=== PATIENT | female | born 1990 | race Two or more races ===

== ENCOUNTER 2016-12-10 09:38 | Emergency (ER) | payer SELFPAY ==
[~2016-12-10] VITALS: Ht 154.9 cm; Wt 63.5 kg
[~2016-12-10 09:38] MED LIST: BENADRYL50 MG PO; IBUPROFEN600 MG ORAL; NKM; NYSTATIN OINT15 GM EXT; TAMIFLU75 MG ORAL
[2016-12-10 09:49] VITALS: BP 121/73
[2016-12-10] MEDS ORDERED: TYLENOL EXTRA500 MG ORAL (10:29)
[2016-12-10 10:33] VITALS: BP 121/73
--- NOTE | 2016-12-10 10:39 | Diagnostic Imaging Report ---
Indication: Left shoulder pain Technique: XRAY SHOULDER MIN 3V LEFT Comparison: None Findings: There is no acute fracture or dislocation. Bone mineralization is normal. Soft tissues are grossly unremarkable. Impression: No acute osseous abnormality.
--- NOTE | 2016-12-11 08:45 | Diagnostic Imaging Report ---
Indication: Left humerus pain Technique: XRAY HUMERUS 2V LEFT Comparison: None Findings: There is no acute fracture or dislocation. Soft tissues are grossly unremarkable. Impression: No acute osseous abnormality.
--- NOTE | 2016-12-13 15:30 | Emergency Room Report ---
History of Present Illness General Chief Complaint: Upper Extremity Injury Source: Patient Present Illness HPI 26-year-old female presents ED complaining of left arm pain. States last night she mechanical trip and fall landing on her left arm. Denies any other injuries. Notes pain to the left arm, throbbing, 6/10, radiating down the arm. No other aggravating or relieving factors. Denies any other associated symptoms Allergies: Coded Allergies: No Known Allergies (Unverified , 04/28/13) Patient History Past Medical History: none Past Surgical History: none Pertinent Family History: none Social History: Denies: alcohol use, drug use, smoking Last Menstrual Period: 11/12/16 Now: No Immunizations: UTD Reviewed Nursing Documentation: PMH: Agreed, PSxH: Agreed Nursing Documentation-PMH Past Medical History: No Stated History Review of Systems All Other Systems: negative except mentioned in HPI Physical Exam Vital Signs Date Time Temp Pulse Resp B/P Pulse Ox O2 Delivery O2 Flow Rate FiO2 12/10/16 09:45 98.2 78 16 121/73 99 Room Air Sp02 EP Interpretation: reviewed, normal General Appearance: no apparent distress, alert, GCS 15, non-toxic Head: normocephalic Eyes: bilateral eye PERRL, bilateral eye normal inspection ENT: normal ENT inspection Neck: normal inspection Respiratory: normal inspection Cardiovascular #1: normal inspection Gastrointestinal: normal inspection Rectal: deferred Genitourinary: no CVA tenderness Musculoskeletal: tender - L humerus Neurologic: alert, oriented x3, responsive, motor strength/tone normal, sensory intact, speech normal Psychiatric: judgement/insight normal, memory normal, mood/affect normal, no suicidal/homicidal ideation Skin: normal inspection Lymphatic: normal inspection Medical Decision Making Diagnostic Impression: Primary Impression: Arm contusion Qualified Codes: S40.022A - Contusion of left upper arm, initial encounter ER Course Hospital Course 26-year-old F presents to ED complaining of L arm pain s/p trip and fall Differential diagnoses include: Fracture, dislocation, sprain, contusion Clinical course Patient placed on stretcher. After initial history and physical, I ordered Xrays of L shoulder/humerus Xrays prelim read shows no acute fracture/dislocation. Diagnosis - arm contusion Stable and discharged to home. apply ice, keep elevated. weight bear as tolerated. Followup with PMD. Return to ED if symptoms recur or worsen Other X-Ray Diagnostic Results Other X-Ray Diagnostic Results : X-Ray Ordered: Left humerus, left shoulder EP Interpretation: Yes Findings: no fractures, no dislocation, no soft tissue swelling Number of Views: 3 Other Impression Left shoulder-No fracture, no dislocation, no soft tissue swelling Left arm-No fracture, no dislocation, no soft tissue swelling Last Vital Signs Date Time Temp Pulse Resp B/P Pulse Ox O2 Delivery O2 Flow Rate FiO2 12/10/16 10:33 98.2 73 16 121/73 99 Room Air Status: improved Disposition: HOME, SELF-CARE Condition: Stable Scripts Acetaminophen* (TYLENOL EXTRA STRENGTH*) 500 Mg Tablet 500 MG ORAL Q8H Y for Prn Headache/Temp > 101, #30 TAB 0 Refills Prov: LIONEL BARBOSA M.D. 12/10/16 Referrals: NOT CHOSEN TESS/,REFERRING (PCP) Patient Instructions: Contusion, [id number] LIONEL BARBOSA M.D. Dec 13, 2016 15:30
== END 2016-12-10 10:40 | disposition home or self-care (01) ==
LOC: EMR 10:30
DX: S40.022A Contusion of left upper arm, initial encounter (principal); W01.0XXA Fall on same level from slipping, tripping and stumbling without subsequent striking against object, initial encounter; Y93.9 Activity, unspecified; Y92.9 Unspecified place or not applicable
CPT/HCPCS: 99284

== ENCOUNTER 2017-04-12 16:01 | Emergency (ER) | payer SELFPAY ==
[~2017-04-12] VITALS: Ht 157.5 cm; Wt 61.2 kg
[~2017-04-12 16:01] MED LIST changes: +TYLENOL EXTRA500 MG ORAL
[2017-04-12 16:07] VITALS: BP 112/74
[2017-04-12] MEDS ORDERED: Bacitracin Oint UD TOPIC ONE (16:30)
[2017-04-12] MEDS ORDERED: Tetanus/Diptheria/Pertussis Vaccine 0.5ml Syr IM ONE (16:30)
[2017-04-12] MEDS ORDERED: Bactrim DS (160mg/800mg) tab ORAL ONE (16:30)
[2017-04-12] MEDS ORDERED: Tylenol #3 tab (300mg/30mg) ORAL ONE (16:30)
[2017-04-12] MEDS ORDERED: Cephalexin 500mg cap ORAL ONE (16:30)
[2017-04-12] MEDS ORDERED: BACTRIM DS TAB1 EAC1 ORAL (16:40)
[2017-04-12] MEDS ORDERED: CEPHALEXIN500 MG ORAL (16:40)
[2017-04-12] MEDS ORDERED: ACETAMINOPHEN-1 EAC1 ORAL (16:40)
[2017-04-12 16:58] VITALS: BP 104/70
--- NOTE | 2017-04-12 18:19 | Emergency Room Report ---
History of Present Illness General Chief Complaint: Skin Rash/Abscess Source: Patient Present Illness HPI The patient is a 27-year-old female presenting with possible insect bite. She states that she noticed a red gualberto on the left thigh yesterday which has now progressed. Pain has increased and is now a 9/10 dull ache. Worse with touch. She denies any fever or chills. She denies other symptoms including N, V, abd pain, LUNA, dizziness, blurred vision Allergies: Coded Allergies: No Known Allergies (Unverified , 04/28/13) Patient History Past Medical History: see triage record Pertinent Family History: none Last Menstrual Period: 03/17/17 Reviewed Nursing Documentation: PMH: Agreed, PSxH: Agreed Nursing Documentation-PMH Past Medical History: No Stated History Review of Systems All Other Systems: negative except mentioned in HPI Physical Exam Vital Signs Date Time Temp Pulse Resp B/P Pulse Ox O2 Delivery O2 Flow Rate FiO2 04/12/17 16:07 98.1 90 16 112/74 98 Room Air Sp02 EP Interpretation: reviewed, normal General Appearance: no apparent distress, alert, GCS 15, non-toxic Head: normocephalic, atraumatic Eyes: bilateral eye PERRL, bilateral eye normal inspection ENT: hearing grossly normal, normal pharynx, no angioedema, normal voice Musculoskeletal: back normal, gait/station normal, normal range of motion Neurologic: alert, oriented x3, responsive, motor strength/tone normal, sensory intact, speech normal Psychiatric: judgement/insight normal, memory normal, mood/affect normal, no suicidal/homicidal ideation Reflexes: 3+ bicep (R), 3+ bicep (L), 3+ tricep (R), 3+ tricep (L), 3+ knee (R) , 3+ knee (L) Skin: rash - L anterior thigh: diffuse erythema surrounding central shallow ulcer. TTP. Hot to the touch Lymphatic: no adenopathy Medical Decision Making PA Attestation Dr. Ray is my supervising physician. Patient management was discussed with my supervising physician Diagnostic Impression: Primary Impression: Cellulitis Qualified Codes: L03.116 - Cellulitis of left lower limb ER Course The patient is a 27 yo F presenting with L leg rash Ddx considered include but not limited to insect bite, contact dermatitis, eczema, cellulitis, among others PE: afebrile. NAD L anterior thigh: diffuse erythema surrounding central shallow ulcer. TTP. Hot to the touch. The area is cleaned with normal saline and Betadine. She is discharged home with a prescription for antibiotics and pain medication. She will follow up with primary doctor. She was given ER precautions Last Vital Signs Date Time Temp Pulse Resp B/P Pulse Ox O2 Delivery O2 Flow Rate FiO2 04/12/17 16:07 98.1 90 16 112/74 98 Room Air Status: improved Disposition: HOME, SELF-CARE Condition: Improved Scripts Trimethoprim/Sulfamethoxazole 160/800* (BACTRIM DS TABLET*) 1 Each Tablet 1 TAB ORAL DAILY, #14 TAB Prov: DEANNANCARMINE P.A. 04/12/17 Cephalexin* (KEFLEX*) 500 Mg Capsule 500 MG ORAL EVERY 12 HOURS, #14 CAP 0 Refills Prov: TERZIANROYERY P.A. 04/12/17 Acetaminophen With Codeine (T#3) (TYLENOL #3 TAB*) Y Tab 1 TAB ORAL Q6HR Y for For Pain, #10 TAB Prov: TERAVERYANROYERY P.A. 04/12/17 Referrals: NOT CHOSEN IPA/MD,REFERRING (PCP) Patient Instructions: Cellulitis, Insect Bite Additional Instructions: I discussed my findings with the patient. All questions and concerns have been answered. Treatment and medication compliance have been addressed. I advised the patient that they need to follow up with PMD in 3-5 days. Return to ED if symptoms worsen, new symptoms arise, or if needed for any reason. Patient verbalized understanding of discharge instructions. CARMINE GIBBS Apr 12, 2017 18:19
== END 2017-04-12 16:58 | disposition home or self-care (01) ==
LOC: EMR 16:38
DX: L03.116 Cellulitis of left lower limb (principal); Z23 Encounter for immunization
CPT/HCPCS: 90471; 90715; 96372; 99284

== ENCOUNTER 2019-03-22 17:08 | Emergency (ER) | payer BC ==
[~2019-03-22] VITALS: Ht 154.9 cm; Wt 65.8 kg
[~2019-03-22 17:08] MED LIST changes: +ACETAMINOPHEN-1 EAC1 ORAL; +BACTRIM DS TAB1 EAC1 ORAL; +CEPHALEXIN500 MG ORAL
[2019-03-22 17:23] VITALS: BP 112/74
--- NOTE | 2019-03-22 17:23 | NUR ---
ED Nurse Note: Pt ahs been experiencing back, chest, neck, and bilateral leg pain x 2 months. Pain 9/10 abby. AOx4, VSS. Will cont to monitor.
[2019-03-22 18:16] LABS: APPEARANCE,URINE CLEAR; BILIRUBIN, URINE NEGATIVE (NEGATIVE); COLOR,URINE PALE YELLOW; GLUCOSE, URINE (UA) NEGATIVE (NEGATIVE); KETONES,URINE 3+ (NEGATIVE); LEUKOCYTE ESTERASE ,URINE NEGATIVE (NEGATIVE); NITRITE,URINE NEGATIVE (NEGATIVE); PH,URINE 6 (4.5-8.0); PROTEIN,URINE NEGATIVE (NEGATIVE); UROBILINOGEN,URINE NORMAL MG/DL (0.0-1.0)
--- NOTE | 2019-03-22 18:23 | NUR ---
ED Nurse Note: Pt down to CT for imaging.
[2019-03-22 18:34] LABS: BASOPHILS % (AUTO) 0.6 % (0.0-2.0); HEMATOCRIT 41.7 % (37.0-47.0); HEMOGLOBIN 13.4 G/DL (12.0-16.0); LYMPHOCYTES % (AUTO) 11.2 % (20.0-45.0); MEAN CORPUSCULAR VOLUME 83 FL (80-99); MONOCYTES % (AUTO) 5.9 % (1.0-10.0); NEUTROPHILS % (AUTO) 82.3 % (45.0-75.0); PLATELET COUNT 182 K/UL (150-450); RED BLOOD COUNT 5.01 M/UL (4.20-5.40); RED CELL DISTRIBUTION WIDTH 13.1 % (11.6-14.8); WHITE BLOOD COUNT 5.5 K/UL (4.8-10.8)
--- NOTE | 2019-03-22 18:43 | Diagnostic Imaging Report ---
Indication: Headache Technique: Contiguous 5 mm thick transaxial imaging of the head obtained in a Siemens Sensation [address] scanner. Soft tissue and bone windows generated. Automatic Exposure Control was utilized. Total Dose length Product (DLP): 1361.[address] Dose Index Volume (CTDIvol): 70.38 mGy Comparison: none Findings: The size and configuration of the cortical sulci, basal cisterns, and ventricles are within normal limits for age. There is no mass effect, midline shift, or edema identified. There is no evidence of acute hemorrhage or abnormal intra-axial or extra-axial fluid collections. The bones and soft tissues are unremarkable. Impression: No mass effect, edema or acute bleed. [facility] has communicated the preliminary results to the Emergency Department. Their findings are largely concordant with this report. The CT scanner at [facility] is accredited by the [employer] and the scans are performed using dose optimization techniques as appropriate to a performed exam including Automatic Exposure control.
[2019-03-22 18:48] LABS: ANION GAP 9 mmol/L (5-15); BLOOD UREA NITROGEN 7 mg/dL (7-18); CALCIUM 9.2 MG/DL (8.5-10.1); CARBON DIOXIDE 26 MMOL/L (21-32); CHLORIDE 103 MMOL/L (98-107); CREATININE 0.7 MG/DL (0.55-1.30); POTASSIUM 4.3 MMOL/L (3.5-5.1); SODIUM 138 MMOL/L (136-145)
[2019-03-22 18:53] LABS: ALANINE AMINOTRANSFERASE 15 U/L (12-78); ALKALINE PHOSPHATASE 65 U/L (46-116); ASPARTATE AMINO TRANSFERASE 20 U/L (15-37); BILIRUBIN,TOTAL 0.5 MG/DL (0.2-1.0)
[2019-03-22] MEDS ORDERED: FIORICET1 EA ORAL (19:12)
--- NOTE | 2019-03-22 19:12 | Emergency Room Report ---
History of Present Illness General Chief Complaint: Pain Source: Patient Present Illness HPI 29-year-old female presents to the emergency department with multiple complaints her primary complaint is a daily 9 out of 10 severity frontal sharp headache with facial pain, photophobia and dizziness. Patient reports she awakes every morning with the symptoms for the past 2 months. Patient states that her symptoms last approximately 2 hours. Patient denies history of migraines she denies familial history of migraines. She also reports nausea however she states today she had vomiting and her headache was 10 out of 10 in severity. Patient denies paresthesias she denies fevers, chills, neck pain or stiffness. She denies trauma or fall or history of TBI. She also is reporting going from 127 pounds 270 pounds within 6 months without change of her diet or exercise/daily activities. Patient also reports intermittent abdominal pains and increased fatigue. The patient describes her dizziness primarily as double vision she denies vertigo or imbalance. Denies loss of vision during episodes of headaches. She also is complaining of having increased tenderness and dull aches in the left breast. Patient denies personal or familial history of uterine, cervical or breast cancer. She denies palpable masses, nipple discharge, indentation of the breast or erythema/warmth. Patient states that she is G2, P2 and she states she is not currently breast-feeding. Also reports that after her second child she has had irregular periods where she typically goes over 38 days prior to having a cycle. She denies hot flashes, fevers, chills she denies any aggravating or relieving factors at this time. Allergies: Coded Allergies: No Known Allergies (Unverified , 04/28/13) Patient History Past Medical History: see triage record Past Surgical History: none Pertinent Family History: none Last Menstrual Period: 03/04/19 Reviewed Nursing Documentation: PMH: Agreed; PSxH: Agreed Nursing Documentation-PMH Past Medical History: No Stated History Review of Systems All Other Systems: negative except mentioned in HPI Physical Exam Vital Signs Date Time Temp Pulse Resp B/P (MAP) Pulse Ox O2 Delivery O2 Flow Rate FiO2 03/22/19 17:17 98.2 83 18 110/72 (85) 97 Room Air Sp02 EP Interpretation: reviewed, normal General Appearance: no apparent distress, alert, GCS 15, non-toxic Head: normocephalic, atraumatic Eyes: bilateral eye normal inspection, bilateral eye PERRL ENT: hearing grossly normal, normal voice Neck: full range of motion Respiratory: chest non-tender, lungs clear, normal breath sounds, speaking full sentences, other - no erythema, warmth or swelling of the breast. Palpable tender lump in the left breast, indurated and approx 1cm in size located in the 3 o'clock position upon very deep palpation, no LAD Cardiovascular #1: regular rate, rhythm, normal capillary refill Gastrointestinal: normal bowel sounds, non tender, soft, non-distended, no guarding Genitourinary: normal inspection, no CVA tenderness Musculoskeletal: back normal, gait/station normal, normal range of motion, non- tender Neurologic: alert, oriented x3, responsive, motor strength/tone normal, sensory intact, normal gait, speech normal, no pronator, other - negative rhomberg, no nystagmus, unable to illicit dizziness, no facial droop, equal qual research manager strength. , grossly normal Psychiatric: judgement/insight normal Lymphatic: no adenopathy Medical Decision Making PA Attestation Dr. Rodriguez Is my supervising Physician whom patient management has been discussed with. Diagnostic Impression: Primary Impression: Headache, new daily persistent (NDPH) Additional Impression: Myalgia ER Course 29-year-old female presents to the emergency department with multiple complaints her primary complaint is a daily 9 out of 10 severity frontal sharp headache with facial pain, photophobia and dizziness. Patient reports she awakes every morning with the symptoms for the past 2 months. Patient states that her symptoms last approximately 2 hours. Patient denies history of migraines she denies familial history of migraines. She also reports nausea however she states today she had vomiting and her headache was 10 out of 10 in severity. Patient denies paresthesias she denies fevers, chills, neck pain or stiffness. She denies trauma or fall or history of TBI. She also is reporting going from 127 pounds 270 pounds within 6 months without change of her diet or exercise/daily activities. Patient also reports intermittent abdominal pains and increased fatigue. The patient describes her dizziness primarily as double vision she denies vertigo or imbalance. Denies loss of vision during episodes of headaches. She also is complaining of having increased tenderness and dull aches in the left breast. Patient denies personal or familial history of uterine, cervical or breast cancer. She denies palpable masses, nipple discharge, indentation of the breast or erythema/warmth. Patient states that she is G2, P2 and she states she is not currently breast-feeding. Also reports that after her second child she has had irregular periods where she typically goes over 38 days prior to having a cycle. She also reports increased muscle aches in bilateral legs and back intermittently without association to over exertion/exercise/trauma or fall. She denies hot flashes, fevers, chills she denies any aggravating or relieving factors at this time. Ddx considered but are not limited to migraine, SAH, Pseudomotor Cerebri, Mass lesion, Cluster LUNA, Tension LUNA, Post lumbar puncture LUNA, mastitis, breast cancer , lipoma just to name a few.. Vital signs: are WNL, pt. is afebrile H&PE are most consistent with new onset of Daily headache with diplopia. Myalgias in the presence of 40lb weight gain and increased fatigue suspicious for endocrine etiology/ tumor. No focal neurological deficits on exam. pt. not currently having symptoms. ORDERS: - CBC: unremarkable -CMP: unremarkable - UA: Unremarkable other than blood and ketones in the urine. -Urine : negative CT Head No Contrast: " No acute intracranial hemorrhage, edema or mass-effect. No evidence of hydrocephalus or acute findings in the visualized paranasal sinuses or mastoid air cells." Per official radiology report- Please see report for specific details. ED INTERVENTIONS: - DISCHARGE: At this time pt. is stable for d/c to home. Will provide printed patient care instructions, and any necessary prescriptions. Care plan and follow up instructions have been discussed with the patient prior to discharge. Labs Test 03/22/19 18:04 03/22/19 18:05 Urine Color Pale yellow Urine Appearance Clear Urine pH 6 (4.5-8.0) Urine Specific [place] 1.015 (1.005-1.035) Urine Protein Negative (NEGATIVE) Urine Glucose (UA) Negative (NEGATIVE) Urine Ketones 3+ (NEGATIVE) Urine Blood 3+ (NEGATIVE) Urine Nitrite Negative (NEGATIVE) Urine Bilirubin Negative (NEGATIVE) Urine Urobilinogen Normal MG/DL (0.0-1.0) Urine Leukocyte Esterase Negative (NEGATIVE) Urine RBC 0-2 /HPF (0 - 2) Urine WBC 0 /HPF (0 - 2) Urine Squamous Epithelial Cells Occasional /LPF Urine Bacteria None /HPF (NONE) Urine HCG, Qualitative Negative (NEGATIVE) White Blood Count 5.5 K/UL (4.8-10.8) Red Blood Count 5.01 M/UL (4.20-5.40) Hemoglobin 13.4 G/DL (12.0-16.0) Hematocrit 41.7 % (37.0-47.0) Mean Corpuscular Volume 83 FL (80-99) Mean Corpuscular Hemoglobin 26.8 PG (27.0-31.0) Mean Corpuscular Hemoglobin Concent 32.2 G/DL (32.0-36.0) Red Cell Distribution Width 13.1 % (11.6-14.8) Platelet Count 182 K/UL (150-450) Mean Platelet Volume 12.4 FL (6.5-10.1) Neutrophils (%) (Auto) 82.3 % (45.0-75.0) Lymphocytes (%) (Auto) 11.2 % (20.0-45.0) Monocytes (%) (Auto) 5.9 % (1.0-10.0) Eosinophils (%) (Auto) 0.0 % (0.0-3.0) Basophils (%) (Auto) 0.6 % (0.0-2.0) Sodium Level 138 MMOL/L (136-145) Potassium Level 4.3 MMOL/L (3.5-5.1) Chloride Level 103 MMOL/L (98-107) Carbon Dioxide Level 26 MMOL/L (21-32) Anion Gap 9 mmol/L (5-15) Blood Urea Nitrogen 7 mg/dL (7-18) Creatinine 0.7 MG/DL (0.55-1.30) Estimat Glomerular Filtration Rate > 60 mL/min (>60) Glucose Level 94 MG/DL (74-106) Calcium Level 9.2 MG/DL (8.5-10.1) Total Bilirubin 0.5 MG/DL (0.2-1.0) Aspartate Amino Transf (AST/SGOT) 20 U/L (15-37) Alanine Aminotransferase (ALT/SGPT) 15 U/L (12-78) Alkaline Phosphatase 65 U/L (46-116) Total Protein 8.0 G/DL (6.4-8.2) Albumin 4.0 G/DL (3.4-5.0) Globulin 4.0 g/dL Albumin/Globulin Ratio 1.0 (1.0-2.7) CT/MRI/US Diagnostic Results CT/MRI/US Diagnostic Results : Imaging Test Ordered: CT Head No Contrast Impression " No acute intracranial hemorrhage, edema or mass-effect. No evidence of hydrocephalus or acute findings in the visualized paranasal sinuses or mastoid air cells." Per official radiology report- Please see report for specific details. Last Vital Signs Date Time Temp Pulse Resp B/P (MAP) Pulse Ox O2 Delivery O2 Flow Rate FiO2 03/22/19 17:23 98.2 79 19 112/74 97 Room Air Disposition: HOME, SELF-CARE Condition: Stable Scripts Acetamin/Butalbital/Caffeine* (FIORICET*) 1 Ea Tab 1 TAB ORAL Q6H, #10 TAB 0 Refills Prov: Tabby Le 03/22/19 Referrals: NOT CHOSEN IPA/MD,REFERRING (PCP) Departure Forms: Return to Work Return to Work Date: Mar 23, 2019 Work Restrictions: None Other Restrictions: please excuse for 03/22/19. Return to Full Activity: Mar 23, 2019 Patient Instructions: Breast Tenderness, General Headache Without Cause Additional Instructions: Take medications as directed. Follow up with a Primary Care Provider in 3-5 days For a referral to have NEUROLOGIST Evaluation and CLIENT REPORTING ASSOCIATE regarding Daily headaches, fatigue, abdominal pain and weight gain. Also follow up with [facility] for left breast tenderness, even if your symptoms have resolved. --->Your CT Head without Contrast did not show any hemorrhage, edema or mass effect. There was no evidence for hydrocephalus either. Return sooner to ED if new symptoms occur, or current symptoms become worse. - Please note that this Emergency Department Report was dictated using [employer] administrative assistant technology software, occasionally this can lead to erroneous entry secondary to interpretation by the dictation equipment. Tabby Le Mar 22, 2019 19:12
[2019-03-22 19:27] VITALS: BP 115/72
--- NOTE | 2019-03-22 19:28 | NUR ---
DCd home with RX, ACI given, explained, understood. Ambulating with steady gait. Arm band removed.
[2019-03-22 19:30] VITALS: BP 115/72
== END 2019-03-22 19:25 | disposition home or self-care (01) ==
LOC: EMR 17:57
DX: G44.52 New daily persistent headache (NDPH) (principal); R51 Headache; R11.0 Nausea
CPT/HCPCS: 36415; 70450; 80053; 81003; 81025; 85025; 99284